=== PATIENT | male | born 1960 | race Caucasian/White ===

== ENCOUNTER 2017-10-26 13:30 | Inpatient (IN) | payer OTHER ==
[~2017-10-26] VITALS: Ht 172.7 cm; Wt 78.0 kg
[2017-10-26] VITALS (11 sets, daily range): BP systolic 000–280; BP diastolic 67–134
[~2017-10-26 13:30] MED LIST: ASPIRIN325 PO; B-100 COMPLEX1 EAC1 PO; BACTRIM DS TAB1 EACH PO; CALCIUM 500 +1 EAC5 PO; FISH OIL 1,0001 EAC5 PO; GARLIC OIL1 EAC1 PO; MILK THISTLE500 MG; MULTIVITAMINS PO; VITAMIN E400 UNIT PO; ZINC10 MG
--- NOTE | 2017-10-26 14:00 | NUR ---
BP AT THIS TIME TAKEN MANUALLY, 280/118
[2017-10-26 14:06] LABS: ABSOLUTE BASOPHILS 0.3 thou/uL (0.0-0.2); ABSOLUTE EOSINOPHILS 1.1 thou/uL (0.0-0.7); ABSOLUTE LYMPHOCYTES 1.9 thou/uL (0.8-5.3); ABSOLUTE MONOCYTES 0.6 thou/uL (0.0-1.2); ABSOLUTE NEUTROPHILS 7.1 thou/uL (1.6-8.1); BASOPHILS 2.3 %; EOSINOPHILS 9.7 %; HEMATOCRIT 31.7 % (42.0-52.0); HEMOGLOBIN 10.7 gm/dL (14.0-18.0); LYMPHOCYTES 17.5 %; MCH 30.3 pg (26.0-34.0); MCHC 33.8 g/dL (28.0-37.0); MCV 89.6 fL (80.0-100.0); MONOCYTES 5.8 %; NUCLEATED RBCS 0 /100WBC; PLATELET COUNT* 135 thou/uL (150-400); POLYS 64.7 %; RBC 3.54 mil/uL (4.50-6.00)
[2017-10-26 14:16] LABS: CALCIUM 7.8 mg/dL (8.5-10.1); POTASSIUM 3.4 mmol/L (3.5-5.1)
[2017-10-26 14:20] LABS: APTT 27.7 Seconds (25.0-31.3); INR 1.2; PROTIME 11.6 Seconds (9.20-11.50)
[2017-10-26 14:23] LABS: ALBUMIN 1.4 g/dL (3.4-5.0); MAGNESIUM 2.3 mg/dL (1.8-2.4); TOTAL PROTEIN 5.6 g/dL (6.4-8.2); TROPONIN-I LEVEL 0.07 ng/mL (<0.06)
[2017-10-26 14:49] LABS: URINE BLOOD 3+ (Negative); URINE CLARITY CLOUDY; URINE COLOR RED; URINE GLUCOSE-RANDOM TRACE (Negative); URINE KETONES NEGATIVE (Negative); URINE LEUKOCYTES-REFLEX NEGATIVE (Negative); URINE NITRITE-REFLEX NEGATIVE (Negative); URINE PROTEIN 3+ (Negative)
[2017-10-26 14:55] LABS: ICTOTEST (BILI CONFIRMATORY) Negative (Negative); URINE BILIRUBIN 1+ (Negative)
[2017-10-26 14:57] LABS: BACTERIA-REFLEX None Seen /HPF (None Seen); CASTS None Seen /LPF (None Seen); CRYSTALS None Seen /LPF (None Seen); SQUAMOUS 0-3 Few /LPF (0-3); URINE RBC >20 Many /HPF (0-2); URINE WBC-REFLEX None Seen /HPF (0-5)
[2017-10-26 15:05] LABS: AMP/METHAMP Negative (Negative); BARBITURATES Negative (Negative); BENZODIAZEPINES Negative (Negative); COCAINE Negative (Negative); METHADONE Negative (Negative); OPIATES Negative (Negative); PCP Negative (Negative); THC Negative (Negative)
--- NOTE | 2017-10-26 18:30 | NUR ---
RECEIVED PT FROM ER. PT A/O X'S 4. TRACING SR. HYPERTENSIVE. PER SYSTOLIC BP TO BE WITHIN 160-180. BP WITHIN PARAMETERS. ADMISSION ASSESSMENT COMPLETED. PT REPORTS HE WANTS TO MAKE SISTER IN LAW SANDRA OWENS HIS DPOA. TRACEY DRAINING YEVGENIY/BLOOD TINGED URINE. WILL CONTINUE PLAN OF CARE.
[2017-10-26] MEDS ORDERED: ASPIR 8181 MG PO (18:47)
[2017-10-27] VITALS (13 sets, daily range): BP systolic 145–196; BP diastolic 76–93
[2017-10-27 04:57] LABS: ALBUMIN 1.3 g/dL (3.4-5.0); AMMONIA 89 umol/L (11-32); BUN 38 mg/dL (7-18); CHLORIDE 114 mmol/L (98-107); CHOLESTEROL 131 mg/dL (<200); POTASSIUM 3.8 mmol/L (3.5-5.1); SGOT 38 U/L (15-37); TC:HDL 2.8 Ratio (Not establshd); TOTAL BILIRUBIN 0.8 mg/dL (<0.1-1.0)
[2017-10-27 04:59] LABS: ANION GAP 11 mmol/L (7-16); CO2 21 mmol/L (21-32); GLUCOSE 98 mg/dL (70-99); SODIUM 146 mmol/L (136-145)
[2017-10-27 05:00] LABS: ALKALINE PHOSPHATASE 112 U/L (46-116); CALCIUM 7.4 mg/dL (8.5-10.1); HDL CHOLESTEROL 47 mg/dL (>40); LDL CHOLESTEROL 72 mg/dL (<100); MAGNESIUM 2.6 mg/dL (1.8-2.4); SGPT 17 U/L (30-65); TRIGLYCERIDE 61 mg/dL (<150); VLDL 12 mg/dL (<40)
[2017-10-27 05:17] LABS: HEMATOCRIT 30.1 % (42.0-52.0); MCH 29.8 pg (26.0-34.0); MCHC 33.4 g/dL (28.0-37.0); MCV 89.3 fL (80.0-100.0); MPV 10.1 fl. (7.2-11.1); RBC 3.37 mil/uL (4.50-6.00); RDW-CV 16.9 % (10.5-14.5); WBC 11.6 thou/uL (4.0-11.0)
[2017-10-27 05:18] LABS: SERUM ASSESSMENT Clear
--- NOTE | 2017-10-27 05:48 | NUR ---
PT. HAS C/O PAIN X1 THIS SHIFT. MORPHINE GIVEN PER PRN ORDER, COMPLETE RELIEF. SYSTOLIC HAS MOSTLY BEEN MAINTAINED BETWEEN 160-180. ORIENTED TO PERSON, PLACE, MONTH AND YEAR. 450CC URINE OUTPUT. ROOM AIR. WILL CONTINUE TO MONITOR.
--- NOTE | 2017-10-27 10:00 | EKG ---
[place] [address] ELECTROCARDIOGRAM REPORT Name: REYNA OWENS JR Room: [address] IN [facility].#: [id number] Admission: 10/26/17 Attend Phys: Nedra Ramirez MD Discharge: Date of : 62 Report #: [id number] THIS REPORT FOR: //name// [facility] ED Test Date: 2017-10-26 Test Time: 13:59:51 Pat Name: REYNA OWENS Department: Room: Gender: Skein Winding Operator: Jacinto REYES : 1960 Requested By: Natalie Duff Order Number: [id number] MD: Reyna Hines Measurements Intervals [place] Rate: 69 P: 65 SD: 156 QRS: 14 QRSD: 102 T: 113 QT: 484 QTc: 519 Interpretive Statements Sinus rhythm Nonspecific T abnormalities, lateral leads Prolonged QT interval Compared to ECG 07/28/2010 23:10:29 T-wave abnormality now present Prolonged QT interval now present Left ventricular hypertrophy no longer present Electronically Signed On 10-27-2017 10:00:49 CDT by Reyna Hines [email or web address] <ELECTRONICALLY SIGNED> By: Reyna Hines MD, FAC 10/27/17 1000 1359 1359 Reyna Hines MD, [facility] /EPI
[2017-10-27 11:08] LABS: AMMONIA 75 umol/L (11-32); LIPASE 1089 U/L (73-393)
--- NOTE | 2017-10-27 11:25 | NUR ---
MET WITH PT AND SISTER IN LAW/SANDRA. COMPLETED AND NOTARIZED DPOA, COPY TO CHART AND TO SANDRA. PT WAS DROWSY BUT ABLE TO ANSWER ALL QUESTIONS. HE LIVES WITH SANDRA AND HIS BROTHER, THEY ASSIST HIM NEEDED. PT HAS BEEN ABLE TO DO ALL HIS OWN ADLS, AMBULATES IN THE HOUSE BUT HOLDS ONTO FURNITURE. PT IS UNINSURED, PER SANDRA, HE APPLIED FOR MEDICAID LAST FALL WELL DISABILITY BUT WAS DENIED. HAVE SPOKEN WITH [employer] TO ASSIST AND EVAL PT FOR MEDICAID. GAVE COMMUNITY RESOURCES, ALLP DISABILITY ASSIST AND DISCUSSED F/U AT [facility] OR [facility]. ALSO TALKED WITH PT/SANDRA ABOUT MEDS AND $4 LIST. SANDRA STATES THEY ARE WILLING TO ASSIST PT. HE DID RUN OUT OF MEDS BUT PER SANDRA, MAY HAVE BEEN BECAUSE THERE WERE NO REFILLS AND PT HAS NO PCP. OFFERED TO MAKE APPT AT [facility] IF THEY WERE WILLING TO GO, WILL CONSIDER. WILL FOLLOW
--- NOTE | 2017-10-27 12:40 | NUR ---
PATIENT CARE ASSUMED AT 0700. PATIENT HAS BEEN AOX4, BUT DROWSY TODAY. PER [id number], PATIENT SLEEPS 16-17 HOURS A DAY. HAS BEEN UNABLE TO WORK SINCE MARCH BECAUSE HE CANNOT "KEEP BALANCED". WAS RECENTLY IN [facility] FOR HYPERTENSIVE URGENCY, MICHAEL, PANCREATITIS. RECORDS ON THE CHART FROM [facility]. NEUROLOGY SIGNED OFF. NEPHROLOGY ADJUSTED AMLODIPINE TO 10MG, AND STATES TO LEAVE CATHETER IN AND MAINTAIN CRITICAL INTAKE AND OUTPUT. CASE MANAGEMENT ASSISTED PATIEN WITH DPOA PAPERWORK THIS MORNING, COPY IN THE CHART. DOWNGRADED TO TELEMETRY STATUS BY HOSPITALIST. LEFT UNIT AT 1240 TO ROOM 307 WITH KIDNEY PULLER/PRECIPITATOR SUPERVISOR. REPORT GIVEN TO LORETTA RUEDA.
--- NOTE | 2017-10-27 13:48 | CON ---
[address] [address] CONSULTATION Name: REYNA OWENS JR Room: [address] IN M.R.#: [id number] Admission: 10/26/17 Attend Phys: Nedra Ramirez MD Discharge: Date of : 62 Report #: [id number] THIS REPORT FOR: //name// CC: YARED physician/PCP Nedra Ramirez DATE OF SERVICE: 10/27/2017 HISTORY OF PRESENT ILLNESS: This is a 57-year-old male patient who was evaluated by me for stroke-like symptoms. I had discussed this patient with Dr. Kline, the Emergency Room physician yesterday and I discussed the patient with Dr. Nielsen today. I talked to the nurses looking after this patient. The patient provides some history, but [id number]-[id number] provided most of the history. The patient has pretty significant medical issues and that is the reason the patient has moved with them. She indicates that this patient used to be alcoholic. He has severe cirrhosis of the liver. He can walk, but he has to hold on to other things. His mentation in the baseline depend upon his ammonia level. About 2 or 3 weeks ago, he ran out of his antihypertensive, but did not tell anybody. He was admitted with hypertensive emergency. His blood pressure was very high and that is being controlled. At that time, he was also noticed to have some diplopia. He does not remember whether it was mild, moderate or severe and what brought it on. He did not know any aggravating or relieving factor with it. It is not sure whether the patient has any associated symptoms with it like headache. He is better this morning. REVIEW OF SYSTEMS: Very extensive in this patient. This patient is being seen by multiple consultants including Cardiology and Nephrology and he does have elevated troponin and his quality of the life is pretty compromised in the baseline, mostly because of his hypertension and liver problems. He also has renal failure. I carried out 14-point review of system in this patient and as mentioned above is positive for above described problems. PAST MEDICAL HISTORY: Positive for liver cirrhosis. He also has hepatitis C. FAMILY HISTORY: Negative for any early stroke. SOCIAL HISTORY: He used to drink alcohol very heavily. He still smokes, but very small amount. PHYSICAL EXAMINATION: The patient's higher functions indicate he is alert. He is responsive. He can tell me the month, but not the date. He knows what hospital he is in. So his memory and fund of knowledge is poor, but speech is intact. Cranial nerve examination 2-12 mostly looks unremarkable. I do not see much nystagmus or diplopia in this patient. His cooperation is poor. He moves all 4 extremities and his sensation is symmetrical. He does have a position sense. His wljzzk-ga-tige looks reasonable. [place] [address] CONSULTATION Name: REYNA OWENS JR Room: [address] IN ..#: [id number] Admission: 10/26/17 Attend Phys: Nedra Ramirez MD Discharge: Date of : 62 Report #: [id number] examination. His pulses are palpable. He has no edema, cyanosis or jaundice. Cardiac and respiratory examination is unremarkable and he is well-developed individual who does not have any dysmorphic features of eyes, ears and face. His blood pressure is 158/87, respiration is 14, pulse is 84, and temperature is 98.6. LABORATORY DATA: His white count is 11.6. His MRI is pretty abnormal, but those changes are chronic. IMPRESSION: The patient's present symptoms are most likely secondary to hypertensive emergency. He has a markedly abnormal MRI, which is most likely related to his prior alcoholism. He also appeared to have hypothyroidism and I think that needs further workup because that can contribute to his ataxia. RECOMMENDATION: I discussed the situation with the patient and the recommendation is: 1. Workup his hypothyroidism somewhat further and see if that need to be treated. 2. His MRI findings are old and most likely secondary to his prior alcoholism and just need to be observed. 3. Main treatment is going to be the treatment of his hypertension. was discussed with the family in detail and all the people as summarized above. More than 50 minutes of time was spent taking care of this patient and majority of that time was spent counseling the patient and the family and coordinating the patient's care. Thank you very much for this referral. <ELECTRONICALLY SIGNED> By: Bhavik Perales MD 10/27/17 1348 1116 [id number] Perales MD /nt
--- NOTE | 2017-10-27 14:58 | NUR ---
PATIENT TO ROOM 307 @ 1240 TODAY. A/O, DENIES PAIN, EXT ASSIST OF ONE WITH TRANSFERS/AMBULATION, FALL RISK PRECAUTION AND BED ALARM ON, SCD TO BILAT LE IN PLACE, MICHELLE IVF VIA 20G TO RAC WITHOUT ISSUE, 18G TO LAC @ SL, FLUSH/DRAW FINE. TRACEY PATENT TO CLEAR YELLOW URINE IN MOD AMT, CALL LIGHT IN REACH, MICHELLE CLD FOR LUNCH, BS PRESENT IN ALL QUADS, ABD FIRM, REPORTS NO BM IN SEVERAL DAYS, LACTULOSE ADMIN IN ICU. SANDRA, SISTER IN LAW, IN AND OUT, PRIMARY CAREGIVER FOR PATIENT. VSS, SIDERAILS UP X 3, CALL LIGHT IN REACH, CONT POC.
[2017-10-28] VITALS (8 sets, daily range): BP systolic 161–209; BP diastolic 50–97
--- NOTE | 2017-10-28 05:16 | NUR ---
PT SLEPT ON AND OFF THIS SHIFT. ASSESSMENT DOCUMENTED. MEDS GIVEN PER E-AUG. IV PATENT, FLUIDS INFUSING. PT REPORTED ABDOMINAL DISCOMFORT. PRN BLOOD PRESSURE MEDICATIONS GIVEN ONCE THIS SHIFT. PT REFUSED MOST REPOSITIONS. WILL CONTINUE WITH PLAN OF CARE.
--- NOTE | 2017-10-28 09:40 | 2DMMODE ---
[place] [address] 2 D/M-MODE ECHOCARDIOGRAM Name: REYNA OWENS JR Room: [address] IN [facility]#: [id number] Admission: 10/26/17 Attend Phys: Nedra Ramirez, Discharge: Date of : 62 Date of Service: 10/28/17 0939 Report #: [id number] THIS REPORT FOR: //name// APPROVED REPORT Study performed: 10/27/2017 10:30:52 EXAM: Comprehensive 2D, Doppler, and color-flow Echocardiogram Patient Location: In-Patient Room #: 001 Status: routine BSA: 1.96 HR: 85 bpm BP: 152/77 mmHg Rhythm: NSR Other Information Study Quality: Good Indications Hypertension/HDD 2D Dimensions LVEF(%): 78.14 (>50%) IVSd: 18.06 (7-11mm) LVOT Diam: 22.29 (18-24mm) LVDd: 45.02 mm PWd: 17.76 (7-11mm) Ascending Ao: 32.00 (22-36mm) LVDs: 24.03 (25-40mm) Aortic Root: 32.07 mm Hong's LVEF: 78.14 % Volumes Left Atrial Volume (Systole) LA ESV Index: 49.70 mL/m2 Aortic Valve AoV Peak Aryan.: 2.20 m/s AO Peak Gr.: 19.36 mmHg LVOT Max P.55 mmHg AO Mean Gr.: 11.98 mmHg LVOT Mean P.04 mmHg LVOT Max V: 2.03 m/s AO V2 VTI: 32.98 cm LVOT Mean V: 1.31 m/s BRENDEN (VTI): 3.53 cm2 LVOT V1 VTI: 29.83 cm Mitral Valve E/A Ratio: 0.78 [place] [address] 2 D/M-MODE ECHOCARDIOGRAM Name: REYNA OWENS JR Room: [address] IN .R.#: [id number] Admission: 10/26/17 Attend Phys: Nedra Ramirez, Discharge: Date of : 62 Date of Service: 10/28/17 0939 Report #: [id number] MV Decel. Time: 319.08 ms MV E Max Aryan.: 0.72 m/s MV PHT: 92.53 ms MVA (PHT): 2.38 cm2 TDI E/Lateral E': 7.20 E/Medial E': 9.00 Medial E' Aryan.: 0.08 m/s Lateral E' Aryan.: 0.10 m/s Pulmonary Valve PV Peak Aryan.: 1.49 m/s PV Peak Gr.: 8.89 mmHg Tricuspid Valve TR Peak Gr.: 94.97 mmHg RVSP: 99.00 mmHg Left Ventricle The left ventricle is normal size. There is normal LV segmental wall motion. Moderate to severe concentric left ventricular hypertrophy. Left ventricular systolic function is normal. The left ventricular ejection fraction is within the normal range. LVEF is 65-70%. Grade I - abnormal relaxation pattern. Right Ventricle The right ventricle is normal size. The right ventricular systolic function is normal. Atria Left atrium is moderately dilated. Right atrium is mildly dilated. Aortic Valve Mild aortic valve sclerosis. Trace aortic regurgitation. No hemodynamically significant valvular aortic stenosis. Mitral Valve Mild mitral annular calcification. Trace mitral regurgitation. No evidence of mitral valve stenosis. Tricuspid Valve The tricuspid valve is normal in structure. Moderate tricuspid regurgitation. The RVSP is ___99____ mmHg. There is severe pulmonary hypertension. Pulmonic Valve The pulmonary valve is normal in structure. [place] [address] 2 D/M-MODE ECHOCARDIOGRAM Name: REYNA OWENS JR Room: [address] IN [facility]#: [id number] Admission: 10/26/17 Attend Phys: Nedra Ramirez, Discharge: Date of : 62 Date of Service: 10/28/17 0939 Report #: [id number] valvular regurgitation. Great Vessels The aortic root is normal in size. IVC is normal in size and collapses with >50% inspiration Pericardium There is no pericardial effusion. <Conclusion> The left ventricle is normal size. Moderate to severe concentric left ventricular hypertrophy. Left ventricular systolic function is normal. The left ventricular ejection fraction is within the normal range. LVEF is 65-70%. Grade I - abnormal relaxation pattern. The right ventricle is normal size. Left atrium is moderately dilated. Right atrium is mildly dilated. Mild aortic valve sclerosis. Trace aortic regurgitation. No hemodynamically significant valvular aortic stenosis. Mild mitral annular calcification. Trace mitral regurgitation. No evidence of mitral valve stenosis. The tricuspid valve is normal in structure. Moderate tricuspid regurgitation. The RVSP is ___99____ mmHg. There is severe pulmonary hypertension. The aortic root is normal in size. IVC is normal in size and collapses with >50% inspiration There is no pericardial effusion. There is normal LV segmental wall motion. <ELECTRONICALLY SIGNED> By: Fco Menjivar MD, [facility] 10/28/1739 8 8 Fco Menjivar MD, FACC /INF
--- NOTE | 2017-10-28 13:07 | CON ---
[address] [address] CONSULTATION Name: REYNA OWENS JR Room: [address] IN M.R.#: [id number] Admission: 10/26/17 Attend Phys: Nedra Ramirez MD Discharge: Date of : 62 Report #: [id number] THIS REPORT FOR: //name// CC: YARED physician/PCP Nedra Ramirez DATE OF SERVICE: 10/26/2017 CARDIOLOGY CONSULTATION HISTORY OF PRESENT ILLNESS: The patient is a 57-year-old single white male who I was asked to see in the emergency room today after he was noted to have elevated blood pressure. Most of the history is obtained from the patient's aovovr-io-uhw who he currently lives with in [place], [place]. The patient has been an alcoholic. Unfortunately, he has no insurance. He is not drinking at this time. 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 He has been incarcerated in the past. He continues to smoke cigarettes. His last hospitalization was in [facility] last March. His blood pressure elevated. He was placed on blood pressure medications; however, he ran out recently. The patient was brought to [facility] Room today by his niece. The patient was brought here complaining of dizziness. According to family members, he had urinated on himself and lots of stool. He complained of a headache. His blood pressure is elevated. I was asked to see him for further evaluation and treatment. He does note some headaches, but denies any chest pain. He does get short of breath with exertion and has lightheadedness, but no palpitations. PAST MEDICAL HISTORY: Significant for no surgical procedures. He has no history of diabetes, hyperlipidemia. MEDICATIONS: He is currently taking only an aspirin a day. ALLERGIES: He has no known drug allergies. FAMILY HISTORY: His father had heart attack. SOCIAL HISTORY: He has been twice in the past. He actually has 2 grown children. He still smokes. He is not drinking or using IV drugs at this time. He lives in [place] with a brother. REVIEW OF SYSTEMS: He has had no history of stroke, seizure. He uses an inhaler occasionally. He has hepatitis C. He has had cirrhosis. No history of heart disease. No history of kidney disease or cancer. He had a DWI in the past while living in [place]. PHYSICAL EXAMINATION: [place] [address] CONSULTATION Name: REYNA OWENS Room: [address]#: [id number] Admission: 10/26/17 Attend Phys: Nedra Ramirez MD Discharge: Date of : 62 Report #: [id number] GENERAL: Revealed a disheveled white male, lying in bed, appeared in no distress. VITAL SIGNS: He had a blood pressure initially of 220/110, pulse 80. He is afebrile. HEENT: He is anicteric. Conjunctivae pink. Mucous membranes are moist. NECK: Neck veins do not appear distended. CHEST: Clear to auscultation. CARDIOVASCULAR: Regular rate and rhythm, grade 2 systolic ejection murmur. ABDOMEN: Soft, nontender, somewhat distended. EXTREMITIES: Had no edema. Dorsalis pedis pulse 2+ bilaterally. SKIN: Cool and dry. NEUROLOGIC: He is very slow moving. His workup in the emergency room, he had an ECG that shows a sinus rhythm, nonspecific T-wave changes. Workup so far in the Emergency Room today. He had CT scan of the head without contrast that showed low density in the white matter of unknown significance. He had MRI of the head without contrast that showed diffuse signal suggesting a demyelinating process versus toxic metabolic disorder. LABORATORY DATA: Sodium 144, potassium 3.4, creatinine is 4.0, lipase 1916, bilirubin 1, alkaline phosphatase is 127, SGPT 20. Albumin 1.4, troponin 0.09. INR 1.2. White blood cell count 11, hemoglobin 10.7, hematocrit 31.7. IMPRESSION AND RECOMMENDATIONS: 1. Hypertension. Recommend calcium emile. 2. Renal failure. 3. History of cirrhosis. 4. Anemia. 5. Altered mental status. Suspect encephalopathy secondary to alcohol. 6. History of alcohol abuse. 7. Tobacco abuse. 8. History of IV drug abuse. 9. Incontinence. <ELECTRONICALLY SIGNED> By: Reyna Hines MD, [facility] 10/28/17 1307 1650 [id number] Hines MD, FAC /nt
[2017-10-28 13:13] LABS: COMPLEMENT-C4 15 mg/dL (14-44)
--- NOTE | 2017-10-28 16:05 | NUR ---
PATIENT NPO THIS SHIFT EXCEPTS MEDS AND ICE CHIPS. PATIENT VERY UPSET ABOUT NOT HAVING ANYTHING TO EAT, EXPLAINED TO PATIENT MULTIPLE TIMES THAT NPO STATUS WAS DUE TO INCREASED LAB VALUES. UP WITH ASSISTANCE TO BATHROOM, BM NOTED THIS SHIFT. TRACEY REMAINS IN PLACE. IVF AND SCHED ABX INFUSED ORDERED. CARDIOLOGY SIGNED OFF THIS SHIFT.
[2017-10-28 16:08] LABS: HEPATITIS B SURFACE AG Negative (Negative)
--- NOTE | 2017-10-28 16:32 | EKG ---
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 10/28/17 1631 Fco Menjivar MD, [facility] /EPI
[2017-10-29 04:28] LABS: ALBUMIN 1.5 g/dL (3.4-5.0); CALCIUM 8.2 mg/dL (8.5-10.1); POTASSIUM 3.7 mmol/L (3.5-5.1); TOTAL BILIRUBIN 0.9 mg/dL (<0.1-1.0); TOTAL PROTEIN 5.4 g/dL (6.4-8.2)
[2017-10-29 04:29] VITALS: BP 193/86
--- NOTE | 2017-10-29 06:06 | NUR ---
PATIENT SLEPT PART OF THE NIGHT. IV FLUIDS CONTINUE TO INFUSE AT 100 ML/HR. PATIENT CONTINUES TO COMPLAIN ABOUT BEING NPO. INFORMED PATIENT AGAIN OF THE REASONS WHY. PATIENT HAD SEVERAL LOOSE STOOLS AFTER HIS LACTULOSE LAST NIGHT ALL OVER THE FLOOR AND THE BED. TRACEY REMAINS TO DEPENDENT DRAIN. PATIENT WAS GIVEN PAIN AND NAUSEA MEDICINE ONCE THIS SHIFT. WILL CONTINUE TO MONITOR.
[2017-10-29 08:10] VITALS: BP 181/71
--- NOTE | 2017-10-29 10:34 | NUR ---
SW followed up with pt. Pt was sleepy. Pt said that his sister has the information/resources list that was provided. Pt did not have any other needs or questions at this time. SW to follow.
[2017-10-29 11:20] VITALS: BP 128/77
[2017-10-29 13:55] LABS: CALCIUM 8.3 mg/dL (8.5-10.1); CREATININE 5.2 mg/dL (0.6-1.3); POTASSIUM 3.5 mmol/L (3.5-5.1)
--- NOTE | 2017-10-29 14:30 | NUR ---
Cardiac rehab. Primary care nurse suggests to attempt to see patient tomorrow due to patient is sleepy today and would not be receptive to education today. Will attempt again tomorrow.
[2017-10-29 15:57] VITALS: BP 161/66
--- NOTE | 2017-10-29 19:36 | NUR ---
PATIENT RESTING IN BED. PATIENT HAD COMPLAINTS OF ABDOMINAL PAIN THIS AM, TREATED ADEQUATELY WITH MEDICATION. PATIENT HAS REQUESTED CLEAR LIQUIDS THROUGHOUT DAY BUT REMAINS NPO WITH ICE CHIPS PRN. PATIENT HAS SLEPT MOST OF AFTERNOON. PATIENT HAD CT WITHOUT INCIDENT. CT WITH CONTRAST ORDERED HOWEVER DUE TO CREATININE LEVEL IT WAS UNABLE TO BE PERFORMED. GI NOTIFIED OF RESULTS AND AWARE OF CONTRAST CT NOT BEING DONE. PATIENT DENIES ANY FURTHER NEEDS AT THIS TIME. CALL LIGHT WITHIN REACH. BED ALARM ON. WILL CONTINUE TO MONITOR.
[2017-10-29 20:00] VITALS: BP 178/104
[2017-10-30 00:14] VITALS: BP 158/72
[2017-10-30 03:35] VITALS: BP 166/76
--- NOTE | 2017-10-30 05:12 | NUR ---
PATIENT SLEPT MOST OF THE NIGHT. IV FLUIDS CONTINUE TO INFUSE AT 100 ML/HR. TRACEY REMAINS TO DEPENDENT DRAIN. PATIENT HAD NO COMPLAINTS OF PAIN OR NAUSEA THIS SHIFT. WILL CONTINUE TO MONITOR.
[2017-10-30 07:14] LABS: CREATININE 5.7 mg/dL (0.6-1.3); POTASSIUM 3.8 mmol/L (3.5-5.1)
[2017-10-30 08:05] VITALS: BP 174/80
[2017-10-30 11:10] LABS: GLOMERULR BASEM MEMBRN AB 3 units (0-20)
[2017-10-30 11:44] LABS: INR 1.3; PROTIME 12.4 Seconds (9.20-11.50)
[2017-10-30 12:00] VITALS: BP 147/74
[2017-10-30 12:05] LABS: ANA INTERPRETATION Negative (Negative)
--- NOTE | 2017-10-30 14:41 | NUR ---
Dr Nielsen informed ELENI of need for pt to transfer possibly to for a potential liver transplant. ELENI called transfer center at [phone] and spoke with Rea who requested FS, ELENI faxed FS to fax [phone]. Rea called ELENI and explained that since pt is [place], will need all medical records and case to be presented to Station Manager for possible approval. ELENI faxed needed records for review. SW awaiting response and ELENI will continue to follow to assist with safe dc planning.
[2017-10-30 15:11] LABS: BF LYMPHOCYTES 27 %; BF POLYS 73 %; BF TISSUE 6 /100 WBC
[2017-10-30 15:12] LABS: SOURCE ASCITES; TOTAL VOLUME 1334 ml
[2017-10-30 15:13] LABS: BF RBC 370 /mm3; CLARITY CLEAR; COLOR COLORLESS; TOTAL CELL COUNT 137 /mm3
[2017-10-30 16:08] VITALS: BP 163/73
--- NOTE | 2017-10-30 18:15 | NUR ---
PATIENT TRANSFERRED TO [facility]. REPORT GIVEN TO PAT. PATIENT TRANSPORTED BY AMBULANCE AT THIS TIME. TRACEY IN PLACE. IV TO LEFT HAND LEFT IN PLACE. PATIENT'S [id number] SANDRA NOTIFIED. PATIENT BELONGINGS GIVEN TO EMS. PATIENT LEFT AT THIS TIME.
[2017-10-30 18:23] LABS: SOURCE ASCITES
[2017-10-31 15:06] LABS: BODY FLUID PROTEIN 0.4 g/dL (())
--- NOTE | 2017-11-02 08:22 | CON ---
[address] [address] CONSULTATION Name: REYNA OWENS JR Room: [address] IN M.R.#: [id number] Admission: 10/26/17 Attend Phys: Nedra Ramirez MD Discharge: 10/30/17 Date of : 62 Report #: [id number] THIS REPORT FOR: //name// CC: [facility] physician/PCP Nedra Ramirez DICTATED BY: Shameka ROMANO DATE OF SERVICE: 10/30/2017 The patient does not have a PCP. Please note at the time of this dictation, the patient was seen and physically examined by myself. REASON FOR CONSULTATION: Cirrhosis, ascites, pancreatitis. HISTORY OF PRESENT ILLNESS: This is a 57-year-old male who presented to the Emergency Room with several day history of being lightheaded without vertigo. He admits to being noncompliant with medical treatment and he has been out of his blood pressure medicine for 3 weeks. He has no health insurance for the last 6 months. The patient states that he was at [facility] in March of last year and was seen by Dr. Malik ALCANTARA for his pancreatitis. He did have an MRCP done at that time that showed evidence of cirrhosis with a large amount of ascitic fluid as well as multiple cystic lesions on his pancreas and mild dilatation of the main pancreatic duct. There was also thickening noted in the gastric antrum at that time. The patient has a history of heavy alcohol consumption and was drinking about 12 beers a night, which he states that he quit that about 6 months ago, but has continued to have an occasional drink once in a while. The patient also states that he was diagnosed with hepatitis C approximately 10 years ago, which he contracted when he was in [facility] and sharing [facility]. He has never been treated for this either. It was also noted when the patient was at [facility] that he was started on Aldactone 100 mg daily as well as 40 mg of Lasix back in March at that time and recommended to have an EGD and it was recommended that he follow up at [facility] since he did not have any health insurance. The patient has never had any upper or lower endoscopy studies and he never followed up at [facility] either. ALLERGIES: No known drug allergies. MEDICATIONS FROM HOME: None because he has not been taking anything. PAST MEDICAL HISTORY: Significant for hepatitis C, hypertension, and cirrhosis of the liver and ascites. PAST SURGICAL HISTORY: Negative. FAMILY HISTORY: [place] [address] CONSULTATION Name: REYNA OWENS JR Room: [address]#: [id number] Admission: 10/26/17 Attend Phys: Nedra Ramirez MD Discharge: 10/30/17 Date of : 62 Report #: [id number] SOCIAL HISTORY: The patient is unemployed, uninsured and is not . He does report marijuana and occasional taking some medications off the street and occasionally drinking of some alcohol on occasion. He does continue to smoke 2 packs per day as well. A 12-point review of systems is essentially negative except what is mentioned in the HPI. REVIEW OF SYSTEMS: Twelve-point review of systems is essentially negative except what is mentioned in the HPI. PHYSICAL EXAMINATION: VITAL SIGNS: Temperature 36.8, pulse 89, respirations 18, blood pressure 174/80. HEART: Regular rate and rhythm. LUNGS: Diminished, but clear. ABDOMEN: Distended, soft, positive bowel sounds in all 4 quadrants with positive fluid wave noted. LABORATORY DATA: Hemoglobin is 10, hematocrit 30, white count is 11.6, platelets 135. Sodium 141, potassium 3.8, chloride 112, CO2 15, BUN is 57, creatinine is 5.7, GFR is 10. Glucose is 79. PT is 11.6, INR is 1.2, ultrasound of the abdomen shows ascites with portal and hepatic vein being patent. Pancreatic duct is dilated, cirrhosis with layering gallstones is noted. CT shows spleen being normal. There is a cyst at the pancreatic head and a nodule at the tail with diffuse thickening noted in the stomach as well as ascites. IMPRESSION: 1. Cirrhosis, likely related to alcohol abuse and hepatitis C infection. 2. Ascites. 3. Thrombocytopenia. 4. Chronic kidney disease, stage 4. 5. History of noncompliance. PLAN: 1. Ultrasound guided paracentesis today. 2. 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 3. Daily weights and low sodium diet. 4. Once the patient has undergone his paracentesis, he will likely need to have followup care at [facility] since he does not have any health insurance. Thank you for allowing us to participate in this patient's care. Please do not hesitate to call with any questions in regard to this consult. ADDENDUM [address] [address] CONSULTATION Name: REYNA OWENS JR Room: [address] [facility] IN M.R.#: [id number] Admission: 10/26/17 Attend Phys: Nedra Ramirez MD Discharge: 10/30/17 Date of : 62 Report #: [id number] I have personally seen and examined the patient and reviewed labs and imaging. The patient with history of noncompliance and liver disease due to long history of hepatitis C and alcoholism. The patient reports that he currently has quit drinking. He presents with tense ascites and renal failure. Nephrology is on board, but has chosen not to dialyze as the patient feared to fall in hepatorenal syndrome. We have ordered an ultrasound-guided paracentesis with analysis of the ascitic fluid. The patient also has 2 lesions in the pancreas, one in the head, which measured 4.0 x 3.9 x 3.8 cm. This lesion is cystic in appearance. Another lesion that is hyperdense is in detail and measures 3 x 11 mm. Further imaging is needed to further assess the lesions. The patient also has thrombocytopenia associated with his liver disease. There is mild leukocytosis. We will await the paracentesis and ascitic fluid analysis and make further recommendation. <ELECTRONICALLY SIGNED> By: Nadeem Castellanos MD 11/02/17 0822 [id number] Castellanos MD /nt
--- NOTE | 2017-11-12 12:02 | CON ---
[address] [address] CONSULTATION Name: REYNA OWENS JR Room: [address] IN .R.#: [id number] Admission: 10/26/17 Attend Phys: Nedra Ramirez MD Discharge: 10/30/17 Date of : 62 Report #: [id number] THIS REPORT FOR: //name// CC: [facility] physician/PCP Nedra Ramirez DATE OF SERVICE: 10/27/2017 CONSULTING PHYSICIAN: Dr. Ramirez. CHIEF COMPLAINT: The patient was brought in because of bowel incontinence and accelerated hypertension. REASON FOR NEPHROLOGY CONSULTATION: Uncontrolled hypertension as well as elevated creatinine. HISTORY OF PRESENT ILLNESS: This is a 57-year-old male who has past medical history of alcoholic cirrhosis, history of pancreatitis, history of medical noncompliance, history of hypertension, history of acute renal failure in the past, was brought in by his [id number]-obj because the patient had incontinence to bowel yesterday. It seems like the patient has been having diarrhea for a few days, but he never told his [id number]-[id number]. The patient has been living with his iszrxl-jk-tnw since May of last year and has not taken alcohol since then. He does take some NSAIDs about 2-3 tablets a month. His creatinine was 2.0 in March of 2017 when he was admitted to [facility]. This time, he came in with accelerated hypertension. His systolic blood pressure was 280 and diastolic 118. He was given IV hydralazine with which his blood pressure did start getting better. His creatinine was 4.0 on admission and it is still 4.0 and Nephrology has been consulted for accelerated hypertension and his elevated creatinine. He denies history of any kidney stones. He denies having any problems with urination. Overnight, he had 450 mL of urine initially, which was bloody once the catheter was placed, but now it is getting clearer. The patient has also noticed some abdominal distention. His creatinine was 0.9 back in 2010. He has been getting IV fluids since yesterday. Currently, he is drowsy, but he is arousable and able to answer all questions, he is completely oriented. ALLERGIES: No known drug allergies. REVIEW OF SYSTEMS: The patient was still having diarrhea, he has not been eating or drinking much in the last few days as well. He also ran out of his blood pressure medications about 3 weeks ago. He has been having some dizziness, neck pain, and diplopia. Other review of systems were done and they were negative. PAST MEDICAL HISTORY: That includes history of hepatitis C, [place] [address] CONSULTATION Name: REYNA OWENS JR Room: [address] IN [facility].#: [id number] Admission: 10/26/17 Attend Phys: Nedra Ramirez MD Discharge: 10/30/17 Date of : 62 Report #: [id number] diagnosed in 2017, hypertension, acute renal failure. HOME MEDICATIONS: Not taking any home medications right now, just taking baby aspirin and ran out of his blood pressure medications 3 weeks ago. PAST SURGICAL HISTORY: Includes a fractured rib. FAMILY HISTORY: No history of any kidney disease in the family. SOCIAL HISTORY: He does not use any illicit drugs in the past. He has not used any alcohol since May of 2017. He does use marijuana. He does smoke every day, 2 packs per day. PHYSICAL EXAMINATION: VITAL SIGNS: Blood pressure is 158/87, respiratory rate is 10, pulse rate is 84, temperature is 37, pulse ox 92% on no oxygen. GENERAL: He is drowsy, but he is arousable. He is oriented x 3. HEAD, EYES, EARS, NOSE AND THROAT: Mucous membranes are moist. NECK: There is no JVD. CHEST: Bilaterally clear to auscultation. No crackles or wheezing. CARDIOVASCULAR: S1, S2 normal. No murmurs. ABDOMEN: It is not tender, but it is moderately distended. It is soft and bowel sounds are diminished. EXTREMITIES: Lower extremities: There is about 2+ edema upper thighs, 2+ presacral edema, otherwise lower extremities are symmetrical. NEUROLOGICAL FUNCTION: Gross neurological function seems to be intact. PSYCHIATRIC: Mood seems to be normal. His labs from this morning at 4:30 a.m., hemoglobin is 10.0, WBC platelet count is 135. Sodium was 146, potassium was 2.8, creatinine was 4. Hemoglobin was 10, platelet count is 135 and other labs are reviewed. IMAGING: MRI imaging studies were reviewed including chest x-ray. Abdominal ultrasound was also reviewed. It showed small amount of ascites, Cosme catheter, liver with irregular surface, small layering gallstones. . Both kidneys were echogenic without hydronephrosis or any masses. ASSESSMENT AND PLAN: 1. Acute kidney injury likely chronic kidney disease stage 3, likely because of accelerated hypertension, some intravascular volume depletion: The patient's creatinine was 2.0 last year in March 2017. He does have cirrhosis and he could be having hepatorenal syndrome, but with his history of diarrhea and not eating much, he is probably having some intravascular volume depletion. I will continue with IV fluids, normal saline at 100 mL an hour for now. He also had some hematuria, so I will order some serological workup for that. No evidence of obstruction on his kidney ultrasound. Avoid nephrotoxic agents. The patient [address] [place] [address] CONSULTATION Name: REYNA OWENS Room: [address] IN M.R.#: [id number] Admission: 10/26/17 Attend Phys: Nedra Ramirez MD Discharge: 10/30/17 Date of : 62 Report #: [id number] was also taking NSAIDs at home, which will also contribute to further kidney injury. There is no acute need for dialysis. Blood pressure has been extremely high and the patient ran out of his blood pressure medications 3 weeks ago. We need to control his blood pressure slowly. Urine shows 3+ protein and 3+ blood. It is possible that Cosme insertion caused some trauma and that caused hematuria because he had gross hematuria, which is not getting better. Proteinuria should be repeated once his kidney function has improved. 2. Dizziness, accelerated hypertension: Blood pressure is getting better controlled. I have increased Norvasc to 10 mg a day and I have also added hydralazine 25 mg t.i.d. 3. High anion gap metabolic acidosis with metabolic alkalosis: Former is because of renal dysfunction and latter is because of some intravascular volume depletion. Continue with some hydration as mentioned above. 4. Mild hypermagnesemia: Avoid magnesium containing compounds. 5. Alcoholic cirrhosis: Deferred to primary for further management of that. The patient does have some ascites. 6. Elevated TSH: We will defer to primary. It could be because of his acute sickness, but this definitely needs to be followed up. Thank you for the consultation. I will continue to follow along with you. Discussed plan with the patient, the patient's ghkolz-fs-trq and nursing. <ELECTRONICALLY SIGNED> By: Neema Curtis MD 11/12/17 1202 1002 [id number] Curtis MD /nt
== END 2017-10-30 18:15 | disposition short-term general hospital (02) | DRG 432 ==
LOC: M.ERS 13:30 → M.TBA-ER 15:50 → M.ICU 15:50 → M.3W 10-27 12:41
PROVIDERS: Internal Medicine; Internal Medicine Nephrology; Nurse Practitioner Adult Health; Physician Assistant; ADMIT Internal Medicine
PROC: 0W9G3ZX Drainage of Peritoneal Cavity, Percutaneous Approach, Diagnostic (ICD-10-PCS; principal; 2017-10-30)
DX: K70.31 Alcoholic cirrhosis of liver with ascites (principal); I16.0 Hypertensive urgency; G93.40 Encephalopathy, unspecified; K85.90 Acute pancreatitis without necrosis or infection, unspecified; N17.9 Acute kidney failure, unspecified; E87.2 Acidosis; E87.3 Alkalosis; N18.5 Chronic kidney disease, stage 5; I12.0 Hypertensive chronic kidney disease with stage 5 chronic kidney disease or end stage renal disease; F12.10 Cannabis abuse, uncomplicated; D64.9 Anemia, unspecified; E03.9 Hypothyroidism, unspecified; F17.210 Nicotine dependence, cigarettes, uncomplicated; B19.20 Unspecified viral hepatitis C without hepatic coma; E87.6 Hypokalemia; E83.41 Hypermagnesemia; E05.90 Thyrotoxicosis, unspecified without thyrotoxic crisis or storm; D69.6 Thrombocytopenia, unspecified; I12.9 Hypertensive chronic kidney disease with stage 1 through stage 4 chronic kidney disease, or unspecified chronic kidney disease; Z91.14 Patient's other noncompliance with medication regimen; Z79.82 Long term (current) use of aspirin; Z82.49 Family history of ischemic heart disease and other diseases of the circulatory system